=== PATIENT | male | born 2005 | race Caucasian/White ===

== ENCOUNTER 2025-09-02 07:58 | Emergency (ER) | payer BC, SELFPAY ==
[2025-09-02] VITALS (16 sets, daily range): BP systolic 106–120; BP diastolic 46–72; PULSE 42–71; TEMP 36.4; O2SAT 100; BMI 18.2
--- NOTE | 2025-09-02 07:59 | ECG_ITS ---
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 Measurements Intervals [place] Rate: 48 P: 73 [place]: 140 QRS: 85 QRSD: 94 T: 55 QT: 444 QTc: 410 Interpretive Statements 1130 Sinus bradycardia 1470 with occasional supraventricular premature complexes 9140 abnormal rhythm ECG No previous ECG available for comparison Electronically Signed On 09-02-2025 11:48:35 EDT by SURI GIMENEZ M.D.
--- NOTE | 2025-09-02 08:03 | XR_ITS ---
[facility] [place] [id number] Patient Name: IMANI MURILLO MRN: [id number] date: 2005 Sex: M Assigned Patient Location: ED.MAIN Current Patient Location: ED.MAIN Accession/Order Number: [id number] Exam Date: 09/02/2025 08:20 Report Date: 09/02/2025 08:45 At the request of: RADHA CURRIE Procedure: XR chest 1V Single view chest: CLINICAL HISTORY: syncope COMPARISON: None FINDINGS: The heart is normal in size. The lungs are clear. The pulmonary vasculature is normal. Mediastinum and hilar regions are unremarkable. No pleural effusions are seen. Visualized bones are intact. XR/XR chest 1V IMPRESSION: NO ACUTE PROCESS. Impression dictated by: Steve Kendall Jr., D.O. 09/02/2025 8:45 AM Dictation Location[facility] Electronically authenticated by: [id number] Y Date: 09/02/2025 08:45
--- NOTE | 2025-09-02 08:17 | ED_ITS ---
HPI - Syncope General Chief Complaint: Syncope Stated Complaint: syncope Time Seen by Provider: 09/02/25 07:59 Source: patient Mode of arrival: ambulance Limitations: no limitations History of Present Illness HPI narrative: cc - syncopal episode Pt has POTS. He admits to poor oral food and fluid intake and drinks a lot of caffeine. He works as a shop welder. While at work this morning, he got dizzy and passed out. he fell back onto his buttocks, complains of pain in the tailbone. No head or neck injury/pain. No extremity or other back injury/pain. He told me that he has had all kinds of tests to evaluate his resting bradycardia and variable cardiac rate, including EKG, tilt table tests, echo and Cardiology consultation at [facility] - all negative, per the patient. He did not eat anything this morning. He drank coffee this morning. Related Data Home Medications ?Medication ?Instructions ?Recorded ?Confirmed No Known Home Medications 09/02/25 100 01/26 Allergies Allergy/AdvReac Type Severity Reaction Status Date / Time No Known Drug Allergies [facility]25 08[facility] Social History Little interest or pleasure in doing things: not at all Feeling down, depressed, or hopeless: not at all Exam Narrative Exam Narrative: Nurses notes and vital signs reviewed and patient is not hypoxic. afebrile General: Very thin male in no apparent distress. Skin: Warm, dry, no pallor noted. Birthmark at occiput/base of scalp Head: Normocephalic, atraumatic. Neck: Supple, non-tender. Eye: Pupils are equal, round and EOMI. No scleral icterus. Ears, Nose, Mouth, and Throat: Oral mucosa is dry Cardiovascular: Regular Rate and Rhythm without murmur, gallop or rub. Respiratory: No accessory muscle use or respiratory distress. Lungs are clear to auscultation, no wheezing, rales or rhonchi Back: No midline thoracic or lumbar vertebral tenderness. Coccyx tenderness Musculoskeletal: normal ROM GI: Abdomen is soft, non-distended. Normal bowel sounds. No tenderness to palpation. No rebound, guarding, or rigidity noted. Neurological: A&O x4. No cranial nerve dysfunction observed. No truncal ataxia. Moves all extremities. Sensation intact. Psychiatric: Cooperative and interactive. Depressed mood, flat affect. Constitutional Vital Signs, click to edit/add: Last Vital Signs Temp 97.5 F L 09/02/25 08:01 Pulse 53 L 09/02/25 09:10 Resp 18 09/02/25 09:10 BP 116/68 09/02/25 09:00 Pulse Ox 100 09/02/25 08:03 O2 Del Method Room Air 09/02/25 08:01 Course Vital Signs Vital signs: Vital Signs Temperature 97.5 F L 09/02/25 08:01 Pulse Rate 45 L 09/02/25 08:01 Respiratory Rate 18 09/02/25 08:01 Blood Pressure 120/72 09/02/25 08:01 Pulse Oximetry 100 09/02/25 08:01 Oxygen Delivery Method Room Air 09/02/25 08:01 Temperature 97.5 F L 09/02/25 08:01 Pulse Rate 53 L 09/02/25 09:10 Respiratory Rate 18 09/02/25 09:10 Blood Pressure 116/68 09/02/25 09:00 Pulse Oximetry 100 09/02/25 08:03 Oxygen Delivery Method Room Air 09/02/25 08:01 MDM - Syncope MDM Narrative Medical decision making narrative: Patient was placed on traffic monitor specialist and EKG obtained. Blood drawn and sent for evaluation. Orthostatics positive - he was dizzy when standing but his HR went from 46 to 65. Ordered to receive NS IVF. He declined offer for food. Blood test results and CXR unremarkable except for marfanoid features on CXR - pt had prior hx of PTX but no PTX now. Patient and I discussed his test results, including ekg. He felt better after receiving NS IVF and was discharged home. 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 ED return if he worsens Differential Diagnosis Differential diagnosis: Likely syncope due to orthostatic hypotension, vasovagal syncope, complete atrioventricular block and dehydration Lab Data Attestation: I reviewed the patient's lab results. Labs: Lab Results 09/02/25 Range/Units 08:42 WBC 8.7 (4.0-11.0) 10^3/uL RBC 4.25 L (4.70-6.10) 10^6/uL Hgb 13.6 L (14.0-18.0) g/dL Hct 39.6 L (42.0-54.0) % MCV 93.2 (80.0-94.0) fL MCH 32.0 (25.9-34.0) pg MCHC 34.3 (29.9-35.2) g/dL RDW 12.3 (11.0-15.0) % Plt Count 167 (150-450) 10^3/uL MPV 9.8 (9.5-13.5) fL Neut % (Auto) 80.4 H (43.0-75.0) % Lymph % (Auto) 13.1 L (20.5-60.0) % [place] % (Auto) 5.0 (1.7-12.0) % Eos % (Auto) 0.8 L (0.9-7.0) % Baso % (Auto) 0.2 (0.2-2.0) % Neut # (Auto) 7.0 H (1.4-6.5) 10^3/uL Lymph # (Auto) 1.1 L (1.2-3.8) 10^3/uL [place] # (Auto) 0.4 (0.3-0.8) 10^3/uL Eos # (Auto) 0.1 (0.0-0.7) 10^3/uL Baso # (Auto) 0.0 (0.0-0.1) 10^3/uL Abs Immat Gran (auto) 0.04 H (0.00-0.03) 10^3/uL Imm/Tot Granulo (auto) 0.5 (0.0-0.5) % Sodium 138 (136-145) mmol/L Potassium 3.8 (3.5-5.1) mmol/L Chloride 105 (98-107) mmol/L Carbon Dioxide 26.6 (21.0-32.0) mmol/L Anion Gap 10.2 BUN 16.0 (7.0-18.0) mg/dL Creatinine 0.79 (0.70-1.30) mg/dL Est GFR ( Amer) >60 (>=60 mL/min/1.73m^2) Est GFR (Non-Af Amer) >60 (>=60 mL/min/1.73m^2) BUN/Creatinine Ratio 20.3 Glucose 121 H (74-106) mg/dL Calcium 8.2 L (8.5-10.1) mg/dL Total Bilirubin 0.5 (0.2-1.0) mg/dL AST 23 (15-37) U/L ALT 31 (16-63) U/L Alkaline Phosphatase 91 (46-116) U/L Total Protein 6.4 (6.4-8.2) g/dL Albumin 3.6 (3.4-5.0) g/dL Globulin 2.8 g/dL Albumin/Globulin Ratio 1.3 Imaging Data Chest x-ray: Attestation: I personally reviewed and interpreted this imaging study as follows: My impression: NAD Radiologist's impression: ITS Impressions Chest X-Ray 09/02/25 08:03 IMPRESSION: NO ACUTE PROCESS. Impression dictated by: Steve Kendall Jr., D.OSloan 09/02/2025 8:45 AM Dictation Location: [facility] Electronically authenticated by: [id number] Y Date: 09/02/2025 08:45 ECG Data Attestation: I personally reviewed and interpreted this ECG as follows: Interpretation: EKG interpretation:Emergency Department physician interpretation. Sinus bradycardia at 48bpm with rate variability. Normal axis, normal IA and QTc intervals and no ST segment elevation or depression. No nonconducted P waves Discharge Plan Discharge Chief Complaint: Syncope Clinical Impression: Syncope due to orthostatic hypotension, Postural orthostatic tachycardia syndrome [POTS] Patient Disposition: Home, Self-Care Time of Disposition Decision: 09:13 Prescriptions / Home Meds: No Action No Known Home Medications Print Language: Afghan Instructions: Syncope (ED), POTS (Postural Orthostatic Tachycardia Syndrome) (ED)
[2025-09-02] MEDS: 0.9 % SODIUM CHLORIDE 1,000 ML 1000 ML IV (08:31)
[2025-09-02 08:51] LABS: Hematocrit 39.6 % (42.0-54.0); Hemoglobin 13.6 g/dL (14.0-18.0); Immature Granulocytes Abs Auto 0.04 10^3/uL (0.00-0.03); Immature Granulocytes Pct Auto 0.5 % (0.0-0.5); Lymphocytes Absolute Auto 1.1 10^3/uL (1.2-3.8); Mean Corpuscular HGB Conc 34.3 g/dL (29.9-35.2); Mean Corpuscular Hemoglobin 32.0 pg (25.9-34.0); Mean Corpuscular Volume 93.2 fL (80.0-94.0); Platelet Count 167 10^3/uL (150-450); Red Blood Count 4.25 10^6/uL (4.70-6.10); White Blood Count 8.7 10^3/uL (4.0-11.0)
[2025-09-02 09:05] LABS: Alanine Aminotransferase 31 U/L (16-63); Albumin Globulin Ratio 1.3; Albumin Level 3.6 g/dL (3.4-5.0); Alkaline Phosphatase 91 U/L (46-116); Anion Gap 10.2; Aspartate Amino Transferase 23 U/L (15-37); Blood Urea Nitrogen 16.0 mg/dL (7.0-18.0); Calcium 8.2 mg/dL (8.5-10.1); Carbon Dioxide 26.6 mmol/L (21.0-32.0); Chloride 105 mmol/L (98-107); Estimated GFR (African America >60 (>=60 mL/min/1.73m^2); Estimated GFR (Non-African Ame >60 (>=60 mL/min/1.73m^2); Globulin 2.8 g/dL; Glucose 121 mg/dL (74-106); Potassium 3.8 mmol/L (3.5-5.1); Sodium 138 mmol/L (136-145); Total Protein 6.4 g/dL (6.4-8.2)
== END 2025-09-02 09:23 | disposition home or self-care (01) ==
PROVIDERS: Emergency Provider Emergency Medicine
DX: I95.1 Orthostatic hypotension (principal); G90.A Postural orthostatic tachycardia syndrome [POTS]
CPT/HCPCS: 36415; 71045; 80053; 85025; 93005; 99284; 99285